=== PATIENT | male | born 1995 | race Caucasian/White ===

== ENCOUNTER 2019-11-17 09:27 | Emergency (ER) | payer SELFPAY ==
[~2019-11-17] VITALS: Ht 180.3 cm; Wt 90.7 kg
== END 2019-11-17 11:35 | disposition home or self-care (01) ==
LOC: ER 09:27
DX: S62.015A Nondisplaced fracture of distal pole of navicular [scaphoid] bone of left wrist, initial encounter for closed fracture (principal); V00.131A Fall from skateboard, initial encounter
CPT/HCPCS: 73110; 73130; 99283-25